=== PATIENT | female | born 1965 | race Caucasian/White ===

== ENCOUNTER 2022-06-16 14:22 | Emergency (ER) | payer BC ==
[~2022-06-16] VITALS: Ht 165.1 cm; Wt 133.4 kg
--- OUTSIDE RECORDS SUMMARY | 2022-06-16 14:24 | XMS ---
PreManage Notification: [facility] [employer] Events No recent Security Events currently on file CRITERIA MET - [facility] Nurse Practitioner: Current PHONE: Unknown SHEILA COSTA Nurse Practitioner: Family Jessica SYEDDAL PHONE: [phone] Milagros has no Care Guidelines for this patient. Linda VISIT COUNT (12 MO.) Mustapha Mckeon TOTAL 1 NOTE: Visits indicate total known visits. ED/UCC VISIT TRACKING (12 MO.) 06/16/2022 14:22 [facility] [place] TYPE: Emergency COMPLAINT: - DIARRHEA INPATIENT VISIT TRACKING (12 MO.) No inpatient visits to display in this time frame [email or web address]
[2022-06-16] MEDS ORDERED: DICLOFENAC SODI75 MG PO (14:39)
[2022-06-16] MEDS ORDERED: CHLORTHALIDONE25 MG PO (14:39)
[2022-06-16] MEDS ORDERED: HYDROCODON-ACE1 EA10 PO (14:39)
[2022-06-16] MEDS ORDERED: FLUOXETINE HCL40 MG PO (14:39)
[2022-06-16] MEDS ORDERED: LISINOPRIL30 MG PO (14:40)
[2022-06-16] MEDS ORDERED: ATORVASTATIN CA20 MG PO (14:40)
[2022-06-16] MEDS ORDERED: AMITRIPTYLINE100 MG PO (14:40)
[2022-06-16] MEDS ORDERED: METRONIDAZOLE500 MG PO (17:19)
[2022-06-16] MEDS ORDERED: CIPRO500 MG PO (17:19)
== END 2022-06-16 17:30 | disposition home or self-care (01) ==
LOC: ED 14:22
DX: R19.7 Diarrhea, unspecified (principal); I10 Essential (primary) hypertension; E78.00 Pure hypercholesterolemia, unspecified; Z79.899 Other long term (current) drug therapy
CPT/HCPCS: 36415; 74177; 80053; 81001; 83735; 85025; 99284-25; J7040; Q9967